=== PATIENT | male | born 1980 | race Caucasian/White ===

== ENCOUNTER 2018-04-02 15:41 | Emergency (ER) | payer MEDICAID, OTHER ==
[2018-04-02] MEDS: KETOROLAC 60 MG INJ IM (16:31)
[2018-04-02 16:33] LABS: URINE PH (Dip) POC 5.5 (5.0-8.5)
[2018-04-02 16:33] LABS: URINE BLOOD (Dip) POC Trace-intact (NEGATIVE); URINE GLUCOSE (Dip) POC Negative (NEGATIVE); URINE KETONES (Dip) POC Trace (NEGATIVE); URINE LEUKOCYTE EST (Dip) POC Negative (NEGATIVE); URINE NITRITE (Dip) POC Negative (NEGATIVE); URINE TOTAL PROTEIN POC Trace (NEGATIVE)
[2018-04-02] MEDS: ONDANSETRON (ODT) 4 MG TAB ODT (16:59)
[2018-04-02] MEDS: HYDROCODONE/APAP (5/325) TAB PO (16:59)
== END 2018-04-02 18:04 | disposition home or self-care (01) ==
LOC: FTE 15:41
DX: N23 Unspecified renal colic (principal); N20.0 Calculus of kidney
CPT/HCPCS: 74176; 81003; 96372; 99285-25

== ENCOUNTER 2018-07-27 02:14 | Emergency (ER) | payer SELFPAY, OTHER, MEDICAID ==
[2018-07-27] MEDS: HYDROCODONE/APAP (5/325) TAB PO (02:43)
[2018-07-27] MEDS: ONDANSETRON (ODT) 4 MG TAB ODT (02:43)
[2018-07-27 02:44] LABS: URINE PH (Dip) POC 5.5 (5.0-8.5)
[2018-07-27 02:44] LABS: URINE BLOOD (Dip) POC 1+ (NEGATIVE); URINE GLUCOSE (Dip) POC Negative (NEGATIVE); URINE KETONES (Dip) POC Negative (NEGATIVE); URINE LEUKOCYTE EST (Dip) POC Negative (NEGATIVE); URINE NITRITE (Dip) POC Negative (NEGATIVE); URINE TOTAL PROTEIN POC 1+ (NEGATIVE)
[2018-07-27] MEDS: KETOROLAC 60 MG INJ IM (02:44)
== END 2018-07-27 04:09 | disposition home or self-care (01) ==
LOC: FTE 02:14
DX: N23 Unspecified renal colic (principal)
CPT/HCPCS: 76775; 81003; 96372; 99285-25